=== PATIENT | female | born 1955 | race Caucasian/White ===

== ENCOUNTER → 2016-11-22 | Outpatient (CLI) | payer OTHER ==
[~2016-11-22] MED LIST: ACET-2321 PO; ASPI-1115 PO; BENA20TA68 PO; CALC-278 PO; CYCL-375 PO; DICL50TA7 PO; ESTR1TAB88 PO; LEVO125T11 PO; MULT-746 PO; NIAC500T8 PO; OXYC-544 PO; POLY17PO6 PO; PRAV40TA3 PO; SENN-125 PO; TRAM-277 PO; ZOLP-109 PO
--- NOTE | 2016-11-22 10:56 | DI ---
INDICATION: ITS.REASON: R05 COUGH PROCEDURE: CHEST 2-VIEWS UPRIGHT (PA \T\ LAT) Encounter: Initial COMPARISON: August 05, 2015 FINDINGS: The lungs are clear without evidence of focal abnormal airspace opacity. There is no pleural effusion or pneumothorax. Chronically elevated right hemidiaphragm. The heart size, mediastinal contours and pulmonary vascularity are within normal limits. There is no significant skeletal abnormality. IMPRESSION: No acute cardiopulmonary disease. .
== END ==
LOC: IMA 10:14
PROVIDERS: ATTEND Family Medicine
DX: R05 Cough (principal)